=== PATIENT | female | born 1940 | race African-American/Black ===

== ENCOUNTER 2016-03-19 09:57 | Outpatient (CLI) | payer MEDICARE ==
[2016-03-19 11:12] LABS: Hemoglobin A1c 6.5 % (4.0-6.0)
[2016-03-19 11:23] LABS: Eosinophils 1 % (0-10); Lymphocytes 64 % (21-51); MDiff Complete? YES; Mean Corpuscular HGB CONC 33.4 g/dL (32.0-36.0); Mean Corpuscular Volume 92.7 fl (81.0-99.0); Mean Platelet Volume 8.5 fL (7.4-10.4); Monocytes 5 % (0-10); Neutrophil 29 % (42-75); Platelet Count 270 thou/uL (130-400); RBC Distribution Width 12.6 % (11.5-14.5); Reactive Lymphocytes 1 % (0-10); Red Blood Cell (RBC) Count 3.89 mill/uL (4.20-5.40)
[2016-03-19 11:54] LABS: ALT (SGPT) 12 U/L (0-55); AST (SGOT) 13 U/L (5-34); Albumin 4.2 g/dL (3.4-4.8); Alkaline Phosphatase 77 U/L (40-150); Anion Gap 13 mmol/L (10-20); BUN (Urea Nitrogen) 21 mg/dL (9.8-20.1); Bilirubin, Total 0.4 mg/dL (0.2-1.2); Calc. Creatinine Clearance 0 mL/min (70-130); Calcium 9.9 mg/dL (7.8-10.44); Carbon Dioxide 27 mmol/L (23-31); Chloride 104 mmol/L (98-107); Cholesterol 183 mg/dL (< 200 Desired); Estimated GFR-MDRD 71; Globulin 2.9 g/dL (2.4-3.5); Glucose 150 mg/dL (83-110); HDL Cholesterol 61 mg/dL (>60 Neg Risk); LDL Cholesterol, Calculated 93 mg/dL; Potassium 3.9 mmol/L (3.5-5.1); Protein, Total 7.1 g/dL (5.8-8.1); Sodium 140 mmol/L (136-145); Triglycerides 143 mg/dL (Less than 150)
[2016-03-19 17:27] LABS: Creatinine, Urine 65.91 mg/dL (47-110); Microalbumin Urine Less than 1.0 mg/dL (0.5-50.0); Microalbumin/Creat Ratio 15.2 mg/g (Less than 30)
== END 2016-03-19 09:58 | disposition home or self-care (01) ==
LOC: MADLABBHPM 09:57
PROVIDERS: ATTEND Family Medicine
DX: E11.65 Type 2 diabetes mellitus with hyperglycemia (principal)
CPT/HCPCS: 36415; 80053; 80061; 82043; 83036; 84443; 85025

== ENCOUNTER 2016-07-30 10:33 | Outpatient (CLI) | payer MEDICARE ==
[2016-07-30 11:12] LABS: #Basophils 0.1 thou/uL (0.0-0.2); #Eosinphils 0.1 thou/uL (0.0-0.7); #Lymphocytes 2.3 thou/uL (1.20-3.40); #Monocytes 0.4 thou/uL (0.11-0.59); #Neutrophils 2.8 thou/uL (1.40-6.50); %Basophils 1.5 % (0.0-1.0); %Eosinophils 1.6 % (0.0-10.0); %Lymphocytes 40.2 % (21.0-51.0); %Monocytes 7.7 % (0.0-10.0); %Neutrophils 48.9 % (42.0-75.0); Hemoglobin 10.6 g/dL (12.0-16.0); Mean Corpuscular HGB CONC 32.1 g/dL (32.0-36.0); Mean Corpuscular Hemoglobin 30.1 pg (27.0-31.0); Mean Corpuscular Volume 93.6 fl (81.0-99.0); Mean Platelet Volume 8.3 fL (7.4-10.4); Platelet Count 233 thou/uL (130-400); RBC Distribution Width 13.9 % (11.5-14.5); Red Blood Cell (RBC) Count 3.53 mill/uL (4.20-5.40); White Blood Cell (WBC) Count 5.7 thou/uL (4.8-10.8)
[2016-07-30 11:18] LABS: Hemoglobin A1c 5.9 % (4.0-6.0)
[2016-07-30 11:24] LABS: ALT (SGPT) 13 U/L (8-55); AST (SGOT) 16 U/L (5-34); Albumin 3.8 g/dL (3.4-4.8); Alkaline Phosphatase 58 U/L (40-150); Anion Gap 16 mmol/L (10-20); BUN (Urea Nitrogen) 42 mg/dL (9.8-20.1); Bilirubin, Total 0.3 mg/dL (0.2-1.2); Calc. Creatinine Clearance 0 mL/min (70-130); Calcium 9.3 mg/dL (7.8-10.44); Carbon Dioxide 23 mmol/L (23-31); Chloride 109 mmol/L (98-107); Estimated GFR-MDRD 44; Globulin 2.7 g/dL (2.4-3.5); Glucose 98 mg/dL (83-110); Potassium 4.3 mmol/L (3.5-5.1); Protein, Total 6.5 g/dL (6.0-8.3); Sodium 144 mmol/L (136-145)
[2016-07-30 17:57] LABS: Creatinine, Urine 37.63 mg/dL (47-110); Microalbumin Urine Less than 1.0 mg/dL (0.5-50.0); Microalbumin/Creat Ratio 26.6 mg/g (Less than 30)
== END 2016-07-30 10:34 | disposition home or self-care (01) ==
LOC: MADLABBHPM 10:33
PROVIDERS: ATTEND Family Medicine
DX: E11.65 Type 2 diabetes mellitus with hyperglycemia (principal); I10 Essential (primary) hypertension; D72.819 Decreased white blood cell count, unspecified
CPT/HCPCS: 36415; 80053; 82043; 83036; 85025

== ENCOUNTER 2016-09-17 07:55 | Outpatient (CLI) | payer MEDICARE ==
[2016-09-17 08:45] LABS: Hemoglobin A1c 6.4 % (4.0-6.0)
[2016-09-17 08:46] LABS: ALT (SGPT) 45 U/L (8-55); AST (SGOT) 42 U/L (5-34); Albumin 3.8 g/dL (3.4-4.8); Alkaline Phosphatase 122 U/L (40-150); Anion Gap 14 mmol/L (10-20); BUN (Urea Nitrogen) 26 mg/dL (9.8-20.1); Bilirubin, Total 0.5 mg/dL (0.2-1.2); Calc. Creatinine Clearance 0 mL/min (70-130); Calcium 9.3 mg/dL (7.8-10.44); Carbon Dioxide 25 mmol/L (23-31); Chloride 108 mmol/L (98-107); Estimated GFR-MDRD 55; Globulin 3.2 g/dL (2.4-3.5); Glucose 149 mg/dL (83-110); Potassium 3.8 mmol/L (3.5-5.1); Sodium 143 mmol/L (136-145)
== END 2016-09-17 07:56 | disposition home or self-care (01) ==
LOC: MADLABBHPM 07:55
PROVIDERS: ATTEND Family Medicine
DX: F32.9 Major depressive disorder, single episode, unspecified (principal); E11.65 Type 2 diabetes mellitus with hyperglycemia; N17.9 Acute kidney failure, unspecified
CPT/HCPCS: 36415; 80053; 83036

== ENCOUNTER 2016-11-04 08:51 | Outpatient (CLI) | payer MEDICARE ==
[2016-11-04 09:40] LABS: Hemoglobin A1c 6.2 % (4.0-6.0)
[2016-11-04 09:46] LABS: ALT (SGPT) 13 U/L (8-55); AST (SGOT) 15 U/L (5-34); Albumin 3.9 g/dL (3.4-4.8); Alkaline Phosphatase 115 U/L (40-150); Anion Gap 11 mmol/L (10-20); BUN (Urea Nitrogen) 46 mg/dL (9.8-20.1); Bilirubin, Total 0.4 mg/dL (0.2-1.2); Calc. Creatinine Clearance 0 mL/min (70-130); Calcium 9.4 mg/dL (7.8-10.44); Carbon Dioxide 24 mmol/L (23-31); Cardiac Risk 3.8 (Less than 4.5); Chloride 107 mmol/L (98-107); Cholesterol 184 mg/dl (< 200 Desired); Estimated GFR-MDRD 40; Globulin 3.1 g/dL (2.4-3.5); Glucose 148 mg/dL (83-110); HDL Cholesterol 49 mg/dL (>60 Neg Risk); LDL Cholesterol, Calculated 95 mg/dL; Potassium 4.1 mmol/L (3.5-5.1); Sodium 138 mmol/L (136-145); Triglycerides 200 mg/dL (Less than 150)
== END 2016-11-04 08:52 | disposition home or self-care (01) ==
LOC: MADLABBHPM 08:51
PROVIDERS: ATTEND Family Medicine
DX: E11.65 Type 2 diabetes mellitus with hyperglycemia (principal); I10 Essential (primary) hypertension
CPT/HCPCS: 36415; 80053; 80061; 83036

== ENCOUNTER 2017-05-21 15:29 | Outpatient (CLI) | payer MEDICARE ==
[2017-05-21 16:20] LABS: ALT (SGPT) 16 U/L (8-55); AST (SGOT) 18 U/L (5-34); Albumin 4.1 g/dL (3.4-4.8); Alkaline Phosphatase 89 U/L (40-150); Anion Gap 16 mmol/L (10-20); BUN (Urea Nitrogen) 22 mg/dL (9.8-20.1); Bilirubin, Total 0.5 mg/dL (0.2-1.2); Calc. Creatinine Clearance 0 mL/min (70-130); Calcium 9.8 mg/dL (7.8-10.44); Carbon Dioxide 26 mmol/L (23-31); Cardiac Risk 3.1 (Less than 4.5); Chloride 106 mmol/L (98-107); Cholesterol 161 mg/dl (< 200 Desired); Estimated GFR-MDRD 67; Glucose 99 mg/dL (83-110); HDL Cholesterol 52 mg/dL (>60 Neg Risk); LDL Cholesterol, Calculated 68 mg/dL; Potassium 4.1 mmol/L (3.5-5.1); Protein, Total 7.1 g/dL (6.0-8.3); Sodium 144 mmol/L (136-145); Triglycerides 207 mg/dL (Less than 150)
[2017-05-21 16:37] LABS: #Basophils 0.1 thou/uL (0.0-0.2); #Lymphocytes 2.6 thou/uL (1.20-3.40); #Monocytes 0.4 thou/uL (0.11-0.59); #Neutrophils 3.3 thou/uL (1.40-6.50); %Basophils 1.5 % (0.0-1.0); %Eosinophils 0.7 % (0.0-10.0); %Lymphocytes 39.8 % (21.0-51.0); %Monocytes 6.4 % (0.0-10.0); %Neutrophils 51.6 % (42.0-75.0); Hemoglobin 11.6 g/dL (12.0-16.0); Mean Corpuscular HGB CONC 33.1 g/dL (32.0-36.0); Mean Corpuscular Hemoglobin 29.9 pg (27.0-31.0); Mean Corpuscular Volume 90.4 fl (81.0-99.0); Mean Platelet Volume 7.3 fL (7.4-10.4); Platelet Count 250 thou/uL (130-400); RBC Distribution Width 13.9 % (11.5-14.5); Red Blood Cell (RBC) Count 3.87 mill/uL (4.20-5.40); White Blood Cell (WBC) Count 6.4 thou/uL (4.8-10.8)
[2017-05-21 21:46] LABS: Hemoglobin A1c 6.5 % (4.0-6.0)
[2017-05-21 21:49] LABS: Iron 41 ug/dL (50-170)
== END 2017-05-21 15:30 | disposition home or self-care (01) ==
LOC: MADLABBHPM 15:29
PROVIDERS: ATTEND Family Medicine
DX: E78.1 Pure hyperglyceridemia (principal); E11.65 Type 2 diabetes mellitus with hyperglycemia; D50.9 Iron deficiency anemia, unspecified
CPT/HCPCS: 36415; 80053; 80061; 83036; 83540; 85025

== ENCOUNTER → 2017-06-02 | Emergency (ER) | payer MEDICARE ==
[~2017-06-02] MED LIST: Iopamidol 370 76% 100 ML VIAL ONE; Morphine 10 MG/ML VIAL ONE; Nitroglycerin 2% Ointment 1 INCH/1 GM Packet ONE; Nitroglycerin 50 MG/250 ML BOT 0 ML ONE; Nitroglycerin 50 MG/250 ML BOT 250 ML ONE
[2017-06-02 15:00] LABS: #Basophils 0.1 thou/uL (0.0-0.2); #Monocytes 0.3 thou/uL (0.11-0.59); #Neutrophils 5.9 thou/uL (1.40-6.50); %Basophils 0.7 % (0.0-1.0); %Eosinophils 0.2 % (0.0-10.0); %Lymphocytes 24.2 % (21.0-51.0); %Monocytes 3.6 % (0.0-10.0); %Neutrophils 71.4 % (42.0-75.0); Hemoglobin 11.8 g/dL (12.0-16.0); Mean Corpuscular Hemoglobin 30.7 pg (27.0-31.0); Mean Corpuscular Volume 90.2 fl (81.0-99.0); Mean Platelet Volume 7.7 fL (7.4-10.4); Platelet Count 249 thou/uL (130-400); RBC Distribution Width 13.2 % (11.5-14.5); Red Blood Cell (RBC) Count 3.86 mill/uL (4.20-5.40); White Blood Cell (WBC) Count 8.3 thou/uL (4.8-10.8)
[2017-06-02 15:01] LABS: PTT 24.1 SEC (22.9-36.1)
[2017-06-02 15:08] LABS: D-Dimer Test 0.79 *mcg/mL (0.27-0.43)
--- NOTE | 2017-06-02 15:10 | RAD ---
CHEST 1 VIEW: Date: 06/02/17 HISTORY: Chest pain. COMPARISON: Chest radiograph from 2017. FINDINGS: Linear scarring left lung base. Remainder of lungs relatively clear. No pneumothorax. No effusion. No acute osseous abnormality. IMPRESSION: Chronic changes. No acute intrathoracic abnormality. POS: [facility]
[2017-06-02 15:14] LABS: CKMB 1.4 ng/mL (0-6.6); Troponin I Less than 0.010 ng/mL (< 0.028)
[2017-06-02 15:28] LABS: ALT (SGPT) 19 U/L (8-55); AST (SGOT) 19 U/L (5-34); Alkaline Phosphatase 88 U/L (40-150); Anion Gap 19 mmol/L (10-20); BUN (Urea Nitrogen) 24 mg/dL (9.8-20.1); Bilirubin, Total 1.1 mg/dL (0.2-1.2); Calc. Creatinine Clearance 0 mL/min (70-130); Calcium 9.4 mg/dL (7.8-10.44); Carbon Dioxide 21 mmol/L (23-31); Chloride 107 mmol/L (98-107); Estimated GFR-MDRD 54; Globulin 2.9 g/dL (2.4-3.5); Glucose 176 mg/dL (83-110); Magnesium 1.8 mg/dL (1.6-2.6); Potassium 4.2 mmol/L (3.5-5.1); Protein, Total 6.9 g/dL (6.0-8.3); Sodium 143 mmol/L (136-145)
--- NOTE | 2017-06-02 17:06 | CT ---
CT ARTERIOGRAM CHEST WITH IV CONTRAST AND 3D MIP IMAGING: HISTORY: Chest pain. Dyspnea. FINDINGS: There is good contrast opacification of the pulmonary arteries and thoracic aorta, with normal branch ing of the greater vessels from the aortic arch. No pneumothorax. Mild bibasilar atelectasis. No b ulky mediastinal adenopathy. Heterogeneity of the thyroid gland is again demonstrated, with the appe arance of a multinodular goiter. The right breast is absent. Myelolipoma involving the left adrenal gland, on the inferior-most images, is again demonstrated. Small hiatal hernia. IMPRESSION: 1. No CT evidence of pulmonary embolus. 2. Incidental type findings are as detailed above. POS: [facility]
== END ==
LOC: MADERS 14:09
DX: R07.9 Chest pain, unspecified (principal); M79.89 Other specified soft tissue disorders; K21.9 Gastro-esophageal reflux disease without esophagitis; I12.9 Hypertensive chronic kidney disease with stage 1 through stage 4 chronic kidney disease, or unspecified chronic kidney disease; N18.2 Chronic kidney disease, stage 2 (mild); E11.22 Type 2 diabetes mellitus with diabetic chronic kidney disease; F32.9 Major depressive disorder, single episode, unspecified; E78.5 Hyperlipidemia, unspecified
CPT/HCPCS: 71045; 71275; 80053; 82553; 83735; 83880; 84484; 85025; 85379; 85610; 85730; 93005; 96365; 96375; J2270

== ENCOUNTER 2017-08-05 13:24 | Outpatient (CLI) | payer MEDICARE | END 2017-08-05 13:25 | disposition home or self-care (01) | LOC: MADLABBHPM 13:24 | PROVIDERS: ATTEND Family Medicine | DX: N18.3 Chronic kidney disease, stage 3 (moderate) (principal) | CPT/HCPCS: 36415; 82565; 84520 ==

== ENCOUNTER 2017-08-12 21:37 | Emergency (ER) | payer MEDICARE ==
[2017-08-12] MEDS ORDERED: Ketorolac Tromethamine 30 MG/ML VIAL ONE (22:24)
[2017-08-12] MEDS ORDERED: diphenhydrAMINE 50 MG/ML VIAL ONE (22:24)
[2017-08-12] MEDS ORDERED: methylPREDNISolone Sod Succ/PF 125 MG/2 ML VIAL ONE (22:25)
[2017-08-12] MEDS ORDERED: Famotidine In NaCl 20 mg/50 ml Premix Bag ONE (22:25)
[2017-08-12] MEDS ORDERED: Sodium Chloride 0.9% 1,000 ML BAG ONE (22:38)
== END 2017-08-12 23:34 | disposition home or self-care (01) ==
LOC: MADERS 21:37
DX: T78.40XA Allergy, unspecified, initial encounter (principal); E11.22 Type 2 diabetes mellitus with diabetic chronic kidney disease; I12.9 Hypertensive chronic kidney disease with stage 1 through stage 4 chronic kidney disease, or unspecified chronic kidney disease; N18.2 Chronic kidney disease, stage 2 (mild); K21.9 Gastro-esophageal reflux disease without esophagitis; F32.9 Major depressive disorder, single episode, unspecified
CPT/HCPCS: 96365; 96375; J1200; J1885; J2930; J7050

== ENCOUNTER 2017-10-21 09:00 | Outpatient (CLI) | payer MEDICARE ==
[2017-10-22 12:43] LABS: Anion Gap 13 mmol/L (10-20); BUN (Urea Nitrogen) 31 mg/dL (9.8-20.1); Bilirubin, Total 0.5 mg/dL (0.2-1.2); Calc. Creatinine Clearance 0 mL/min (70-130); Calcium 9.9 mg/dL (7.8-10.44); Carbon Dioxide 27 mmol/L (23-31); Chloride 108 mmol/L (98-107); Estimated GFR-MDRD 52; Glucose 128 mg/dL (83-110); Potassium 3.6 mmol/L (3.5-5.1); Sodium 144 mmol/L (136-145)
[2017-10-22 12:44] LABS: ALT (SGPT) 15 U/L (8-55); AST (SGOT) 16 U/L (5-34); Alkaline Phosphatase 58 U/L (40-150); Cardiac Risk 2.5 (Less than 4.5); Cholesterol 125 mg/dL (< 200 Desired); Globulin 2.7 g/dL (2.4-3.5); HDL Cholesterol 51 mg/dL (>60 Neg Risk); LDL Cholesterol, Calculated 56 mg/dL; Protein, Total 6.7 g/dL (5.8-8.1); Triglycerides 86 mg/dL (Less than 150)
[2017-10-22 12:52] LABS: Hemoglobin 11.5 g/dL (12.0-16.0); Manual Diff?? NO; Mean Corpuscular HGB CONC 31.9 g/dL (32.0-36.0); Mean Corpuscular Hemoglobin 30.1 pg (27.0-31.0); Mean Corpuscular Volume 94.1 fL (78.0-98.0); Platelet Count 260 thou/uL (130-400); RBC Distribution Width 13.3 % (11.5-14.5); Red Blood Cell (RBC) Count 3.83 mill/uL (4.20-5.40); White Blood Cell (WBC) Count 5.2 thou/uL (4.8-10.8)
[2017-10-22 12:53] LABS: #Basophils 0.1 thou/uL (0.0-0.2); #Eosinphils 0.1 thou/uL (0.0-0.7); #Monocytes 0.4 thou/uL (0.11-0.59); #Neutrophils 2.6 thou/uL (1.40-6.50); %Basophils 1.5 % (0.0-1.0); %Eosinophils 1.1 % (0.0-10.0); %Lymphocytes 40.4 % (21.0-51.0); %Monocytes 6.9 % (0.0-10.0); %Neutrophils 50.2 % (42.0-75.0); MDiff Complete? YES
[2017-10-22 17:24] LABS: Iron 54 ug/dL (50-170)
[2017-10-22 17:28] LABS: Hemoglobin A1c 6.7 % (4.0-6.0)
== END 2017-10-21 09:01 | disposition home or self-care (01) ==
LOC: MADLAB 09:00
PROVIDERS: ATTEND Family Medicine
DX: E78.1 Pure hyperglyceridemia (principal)
CPT/HCPCS: 36415; 80053; 80061; 82728; 83036; 83540; 85025

== ENCOUNTER 2017-11-05 16:52 | Outpatient (CLI) | payer MEDICARE ==
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
== END 2017-11-05 16:53 | disposition home or self-care (01) ==
LOC: MADRAD 16:52
PROVIDERS: ATTEND Family Medicine
DX: S80.01XA Contusion of right knee, initial encounter (principal); M17.11 Unilateral primary osteoarthritis, right knee

== ENCOUNTER 2017-12-25 14:11 | Emergency (ER) | payer MEDICARE ==
[2017-12-25] MEDS ORDERED: Morphine 4 MG/ML VIAL ONE ×2 (14:57→16:27)
[2017-12-25] MEDS ORDERED: Ondansetron PF 4 MG/2 ML Vial ONE (14:57)
[2017-12-25] MEDS ORDERED: Aspirin 325 MG TAB ONE (14:57)
[2017-12-25 15:00] LABS: Band 3 % (5-11); Hemoglobin 11.4 g/dL (12.0-16.0); Lymphocytes 33 % (21-51); MDiff Complete? YES; Mean Corpuscular HGB CONC 32.6 g/dL (32.0-36.0); Mean Corpuscular Hemoglobin 29.8 pg (27.0-31.0); Mean Corpuscular Volume 91.2 fL (78.0-98.0); Mean Platelet Volume 7.7 fL (7.4-10.4); Monocytes 15 % (0-10); Neutrophil 49 % (42-75); PLT Morphology Comment Appears Adequate; Platelet Count 261 thou/uL (130-400); Red Blood Cell (RBC) Count 3.83 mill/uL (4.20-5.40); White Blood Cell (WBC) Count 5.2 thou/uL (4.8-10.8)
[2017-12-25 15:04] LABS: Anion Gap 16 mmol/L (10-20); BUN (Urea Nitrogen) 19 mg/dL (9.8-20.1); CK (CPK) 29 U/L (29-168); Calc. Creatinine Clearance 0 mL/min (70-130); Calcium 9.1 mg/dL (7.8-10.44); Carbon Dioxide 20 mmol/L (23-31); Chloride 109 mmol/L (98-107); Estimated GFR-MDRD 45; Glucose 100 mg/dL (83-110); Potassium 3.5 mmol/L (3.5-5.1); Sodium 141 mmol/L (136-145)
[2017-12-25 15:06] LABS: CKMB 1.7 ng/mL (0-6.6); Troponin I Less than 0.010 ng/mL (< 0.028)
== END 2017-12-25 16:53 | disposition left against medical advice (07) ==
LOC: MADERS 14:11
DX: R07.9 Chest pain, unspecified (principal); E78.5 Hyperlipidemia, unspecified; E11.9 Type 2 diabetes mellitus without complications; K21.9 Gastro-esophageal reflux disease without esophagitis; I12.9 Hypertensive chronic kidney disease with stage 1 through stage 4 chronic kidney disease, or unspecified chronic kidney disease; N18.2 Chronic kidney disease, stage 2 (mild); K56.609 Unspecified intestinal obstruction, unspecified as to partial versus complete obstruction; F32.9 Major depressive disorder, single episode, unspecified; Z79.899 Other long term (current) drug therapy; Z79.84 Long term (current) use of oral hypoglycemic drugs
CPT/HCPCS: 80048; 82550; 82553; 83880; 84484; 85025; 85379; 93005; 94760; 96374; 96375; 96376; J2270; J2405

== ENCOUNTER 2018-01-12 14:06 | Outpatient (CLI) | payer MEDICARE ==
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
== END 2018-01-12 14:07 | disposition home or self-care (01) ==
LOC: MADRAD 14:06
PROVIDERS: ATTEND Family Medicine
DX: M54.2 Cervicalgia (principal); M25.511 Pain in right shoulder; M25.512 Pain in left shoulder; M47.812 Spondylosis without myelopathy or radiculopathy, cervical region; M19.011 Primary osteoarthritis, right shoulder
CPT/HCPCS: 72050

== ENCOUNTER 2018-02-25 15:01 | Emergency (ER) | payer MEDICARE ==
[~2018-02-25 15:01] MED LIST changes: -Iopamidol 370 76% 100 ML VIAL ONE; +Iopamidol 370 76% 125 ML VIAL FS ONE; -Morphine 10 MG/ML VIAL ONE; -Nitroglycerin 2% Ointment 1 INCH/1 GM Packet ONE; -Nitroglycerin 50 MG/250 ML BOT 0 ML ONE; -Nitroglycerin 50 MG/250 ML BOT 250 ML ONE
[2018-02-25 15:37] LABS: #Basophils 0.1 thou/uL (0.0-0.2); #Lymphocytes 1.8 thou/uL (1.20-3.40); #Monocytes 0.3 thou/uL (0.11-0.59); #Neutrophils 4.1 thou/uL (1.40-6.50); %Basophils 1.3 % (0.0-1.0); %Eosinophils 0.1 % (0.0-10.0); %Lymphocytes 27.9 % (21.0-51.0); %Monocytes 4.8 % (0.0-10.0); %Neutrophils 65.9 % (42.0-75.0); Mean Corpuscular HGB CONC 32.3 g/dL (32.0-36.0); Mean Corpuscular Hemoglobin 30.4 pg (27.0-31.0); Mean Corpuscular Volume 94.2 fL (78.0-98.0); Mean Platelet Volume 8.2 fL (7.4-10.4); Platelet Count 254 thou/uL (130-400); RBC Distribution Width 13.6 % (11.5-14.5); Red Blood Cell (RBC) Count 3.94 mill/uL (4.20-5.40); White Blood Cell (WBC) Count 6.3 thou/uL (4.8-10.8)
[2018-02-25 15:38] LABS: PTT 23.8 SEC (22.9-36.1)
[2018-02-25 15:50] LABS: ALT (SGPT) 13 U/L (8-55); AST (SGOT) 14 U/L (5-34); Albumin 4.2 g/dL (3.4-4.8); Alkaline Phosphatase 69 U/L (40-150); Anion Gap 13 mmol/L (10-20); BUN (Urea Nitrogen) 27 mg/dL (9.8-20.1); Bilirubin, Total 0.4 mg/dL (0.2-1.2); Calc. Creatinine Clearance 0 mL/min (70-130); Calcium 9.9 mg/dL (7.8-10.44); Carbon Dioxide 26 mmol/L (23-31); Chloride 108 mmol/L (98-107); Estimated GFR-MDRD 51; Globulin 2.7 g/dL (2.4-3.5); Glucose 139 mg/dL (83-110); Potassium 4.1 mmol/L (3.5-5.1); Protein, Total 6.9 g/dL (6.0-8.3); Sodium 143 mmol/L (136-145)
[2018-02-25 16:13] LABS: Bilirubin Negative (Negative); Blood, Urine Negative (Negative); Clarity Clear (Clear); Glucose, Urine (Dipstick) 250 mg/dL (Negative); Leukocyte Trace (Negative); Nitrite Negative (Negative); Protein, Urine (Dipstick) Negative (Neg-Trace); Specific Gravity, Urine 1.015 (1.005-1.030)
[2018-02-25 16:14] LABS: Bacteria/HPF Rare-Few HPF (None Seen); RBC/HPF 0-3 HPF (0-3)
--- NOTE | 2018-02-26 07:22 | CT ---
HEAD CT WITHOUT CONTRAST CT ANGIOGRAM OF THE HEAD CT ANGIOGRAM OF THE NECK 02/25/18 HISTORY: Right sided weakness, less than 24 hours. COMPARISON: None. TECHNIQUE: Noncontrast head CT is performed in the axial plane. CT angiogram of the head and neck is performed in the axial plane. Three dimensional reformatted imag es are submitted for interpretation. FINDINGS: NONCONTRAST HEAD CT: No parenchymal hemorrhage. No extra-axial hematoma. No midline shift. Basilar cisterns are patent. Ag e appropriate atrophy. Cortical toscano-white matter differentiation is preserved. Ventricle and sulci a re patent and symmetric. Calvarium is intact. Adequate aeration of the sinuses and mastoid air cells. Cavernous carotid athero sclerosis is noted. The visualized lung apices are unremarkable. Upper mediastinum is unremarkable. Multiple hypodensities are noted in the thyroid gland. Nonemergent thyroid ultrasound can be performe d. There is prominence of the left and right submandibular duct without evidence of an associated sialol ith. There is no inflammatory change. Parotid glands are unremarkable. Bilateral ocular lenses are appropriately located. Both globes are intact. Retrobulbar fat is preserv ed. Symmetric attenuation of the optic nerves and ocular rectus muscles. No obvious masses in the ora l cavity. No evidence of lymphadenopathy or size criteria. On the postcontrast images, cortical toscano- white matter differentiation is preserved. CT ANGIOGRAM: The visualized aortic arch has appropriate enhancement and luminal diameter. RIGHT CAROTID: The origin of the right carotid artery has appropriate enhancement and luminal diameter. There is mil d tortuosity of the proximal right common carotid artery. The right common carotid artery, carotid bi furcation and internal carotid artery have appropriate enhancement and luminal diameter. LEFT CAROTID: The left carotid artery origin has appropriate enhancement and luminal diameter. The left common verduzco tid artery, carotid bifurcation, and internal carotid artery have appropriate enhancement and luminal diameter. Cervical vertebral arteries are patent throughout their course in the neck and are essenti ally codominant. Bilateral subclavian arteries are patent. CT ANGIOGRAM OF THE HEAD: The distal cervical and cranial internal carotid arteries have appropriate enhancement and luminal di ameter. There is atherosclerosis of bilateral cavernous carotid arteries. ANTERIOR CIRCULATION: There is appropriate enhancement and luminal diameter of the left and right A1 and M1 segments. Proxi mal A2 segments and proximal MCA branches are patent. POSTERIOR CIRCULATION: Right and left PICA artery origins are grossly unremarkable. Both vertebral arteries supply a normal appearing basilar artery. The left and right P1 segments have appropriate enhancement and luminal felix meter. IMPRESSION: 1. No evidence of vascular occlusion at the level of the [place]. 2. No evidence of significant stenosis based upon NASCET criteria in the cervical carotid arteri es. 3. Incidental findings involving the submandibular and thyroid gland is described above. Results of the study discussed with Dr. Street, 02/25/18 at 4:01 p.m. Code CR POS: [facility]
== END 2018-02-25 18:50 | disposition short-term general hospital (02) ==
LOC: EDBD 15:01 → MADERS 15:01
DX: R53.1 Weakness (principal); E78.5 Hyperlipidemia, unspecified; E11.9 Type 2 diabetes mellitus without complications; K21.9 Gastro-esophageal reflux disease without esophagitis; I12.9 Hypertensive chronic kidney disease with stage 1 through stage 4 chronic kidney disease, or unspecified chronic kidney disease; N18.2 Chronic kidney disease, stage 2 (mild); F32.9 Major depressive disorder, single episode, unspecified; Z79.899 Other long term (current) drug therapy; Z79.84 Long term (current) use of oral hypoglycemic drugs
CPT/HCPCS: 36415; 36416; 70450; 70496; 80053; 81003; 81015; 84484; 85025; 85610; 85730; 93005

== ENCOUNTER 2018-06-28 18:46 | Emergency (ER) | payer MEDICARE ==
[2018-06-28] MEDS ORDERED: diphenhydrAMINE 25 MG CAP ONE (19:13)
== END 2018-06-28 19:42 | disposition home or self-care (01) ==
LOC: MADERS 18:46
DX: S40.262A Insect bite (nonvenomous) of left shoulder, initial encounter (principal); S10.96XA Insect bite of unspecified part of neck, initial encounter; E78.5 Hyperlipidemia, unspecified; E11.9 Type 2 diabetes mellitus without complications; K21.9 Gastro-esophageal reflux disease without esophagitis; F32.9 Major depressive disorder, single episode, unspecified; I12.9 Hypertensive chronic kidney disease with stage 1 through stage 4 chronic kidney disease, or unspecified chronic kidney disease; N18.2 Chronic kidney disease, stage 2 (mild); Z79.899 Other long term (current) drug therapy; Z79.84 Long term (current) use of oral hypoglycemic drugs; W57.XXXA Bitten or stung by nonvenomous insect and other nonvenomous arthropods, initial encounter
CPT/HCPCS: 96372; J1040; Q0163

== ENCOUNTER 2018-08-20 14:13 | Outpatient (CLI) | payer MEDICARE ==
--- NOTE | 2018-08-20 16:29 | RAD ---
THREE VIEWS CERVICAL SPINE: COMPARISON: None. HISTORY: Radicular neck pain extending into the right upper extremity. FINDINGS: Three views of the cervical spine show normal height and alignment of the vertebral bodies without fr acture or subluxation. There is mild intervertebral disk space narrowing at C3-4. No prevertebral s oft tissue swelling is seen. IMPRESSION: Mild degenerative changes of the upper cervical spine without acute osseous abnormality. POS: [facility]
== END 2018-08-20 14:14 | disposition home or self-care (01) ==
LOC: MADRAD 14:13
PROVIDERS: ATTEND Orthopaedic Surgery
DX: M47.22 Other spondylosis with radiculopathy, cervical region (principal)
CPT/HCPCS: 72040

== ENCOUNTER 2019-03-18 13:20 | Outpatient (CLI) | payer MEDICARE ==
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
== END 2019-03-18 13:21 | disposition home or self-care (01) ==
LOC: MADRAD 13:20
PROVIDERS: ATTEND Orthopaedic Surgery
DX: M17.12 Unilateral primary osteoarthritis, left knee (principal)

== ENCOUNTER 2019-04-22 09:37 | Emergency (ER) | payer MEDICARE ==
[2019-04-22] MEDS ORDERED: HYDROcodone/Acetaminophen 5/325 mg Tablet ONE (10:19)
[2019-04-22] MEDS ORDERED: diphenhydrAMINE 25 MG CAP ONE (10:19)
[2019-04-22] MEDS ORDERED: predniSONE 20 MG TAB ONE (10:19)
== END 2019-04-22 10:24 | disposition home or self-care (01) ==
LOC: MADERS 09:37
DX: T63.441A Toxic effect of venom of bees, accidental (unintentional), initial encounter (principal); L53.0 Toxic erythema; M79.89 Other specified soft tissue disorders; E78.5 Hyperlipidemia, unspecified; K21.9 Gastro-esophageal reflux disease without esophagitis; I12.9 Hypertensive chronic kidney disease with stage 1 through stage 4 chronic kidney disease, or unspecified chronic kidney disease; E11.22 Type 2 diabetes mellitus with diabetic chronic kidney disease; N18.2 Chronic kidney disease, stage 2 (mild); F32.9 Major depressive disorder, single episode, unspecified
CPT/HCPCS: 99282; J7512; Q0163

== ENCOUNTER 2020-04-20 09:54 | Outpatient (CLI) | payer MEDICARE | END 2020-04-20 09:55 | disposition home or self-care (01) | LOC: MADRAD 09:54 | PROVIDERS: ATTEND Family Medicine | DX: M54.2 Cervicalgia (principal); M47.812 Spondylosis without myelopathy or radiculopathy, cervical region; V89.2XXA Person injured in unspecified motor-vehicle accident, traffic, initial encounter | CPT/HCPCS: 72050 ==

== ENCOUNTER 2020-06-20 11:32 | Emergency (ER) | payer MEDICARE ==
[2020-06-20] MEDS ORDERED: Nitroglycerin 0.4 MG TAB 1 EACH ONE ×2 (11:52→12:53)
[2020-06-20] MEDS ORDERED: Aspirin Chewable 81 MG TAB ONE (11:52)
[2020-06-20] MEDS ORDERED: Morphine 4 MG/ML VIAL ONE ×2 (13:20→15:08)
[2020-06-20 16:29] LABS: Red Blood Cell (RBC) Count 3.82 mill/uL (4.20-5.40); White Blood Cell (WBC) Count 5.3 thou/uL (4.8-10.8)
[2020-06-20 16:30] LABS: #Lymphocytes 2.5 thou/uL (1.20-3.40); #Neutrophils 2.3 thou/uL (1.40-6.50); %Basophils 1.4 % (0.0-1.0); %Eosinophils 0.9 % (0.0-10.0); %Lymphocytes 46.5 % (21.0-51.0); %Monocytes 7.1 % (0.0-10.0); %Neutrophils 44.1 % (42.0-75.0); Hemoglobin 11.4 g/dL (12.0-16.0); Mean Corpuscular HGB CONC 30.4 g/dL (32.0-36.0); Mean Corpuscular Hemoglobin 29.9 pg (27.0-31.0); Mean Corpuscular Volume 98.2 fL (78.0-98.0); Mean Platelet Volume 8.8 fL (7.4-10.4); Platelet Count 261 thou/uL (130-400); RBC Distribution Width 13.1 % (11.5-14.5)
[2020-06-20 16:31] LABS: #Basophils 0.1 thou/uL (0.0-0.2); #Monocytes 0.4 thou/uL (0.11-0.59)
[2020-06-20 16:39] LABS: ALT (SGPT) 21 U/L (8-55); AST (SGOT) 18 U/L (5-34); Albumin 3.5 g/dL (3.4-4.8); Alkaline Phosphatase 122 U/L (40-110); Anion Gap 16 mmol/L (10-20); BUN (Urea Nitrogen) 23 mg/dL (9.8-20.1); Bilirubin, Total 0.6 mg/dL (0.2-1.2); Calc. Creatinine Clearance 0 mL/min (70-130); Calcium 8.6 mg/dL (7.8-10.44); Carbon Dioxide 22 mmol/L (23-31); Chloride 110 mmol/L (98-107); Globulin 2.4 g/dL (2.4-3.5); Glucose 129 mg/dL (83-110); Potassium 3.9 mmol/L (3.5-5.1); Protein, Total 5.9 g/dL (5.8-8.1); Sodium 144 mmol/L (136-145)
[2020-06-20 16:42] LABS: PTT 28.9 sec (22.9-36.1); Prothrombin Time 13.2 sec (12.0-14.7)
== END 2020-06-20 16:55 | disposition short-term general hospital (02) ==
LOC: MADERS 11:32
DX: R07.9 Chest pain, unspecified (principal); R60.0 Localized edema; R06.02 Shortness of breath; R11.0 Nausea; K21.9 Gastro-esophageal reflux disease without esophagitis; I12.9 Hypertensive chronic kidney disease with stage 1 through stage 4 chronic kidney disease, or unspecified chronic kidney disease; N18.2 Chronic kidney disease, stage 2 (mild); E11.22 Type 2 diabetes mellitus with diabetic chronic kidney disease; Z79.84 Long term (current) use of oral hypoglycemic drugs; Z79.899 Other long term (current) drug therapy; Z85.3 Personal history of malignant neoplasm of breast
CPT/HCPCS: 71045; 80053; 83880; 84484; 85025; 85610; 85730; 93005; 94760; J2270

== ENCOUNTER 2020-07-05 13:24 | Emergency (ER) | payer MEDICARE | END 2020-07-05 14:25 | disposition home or self-care (01) | LOC: MADERS 13:24 | DX: S83.92XA Sprain of unspecified site of left knee, initial encounter (principal); S86.912A Strain of unspecified muscle(s) and tendon(s) at lower leg level, left leg, initial encounter; E11.9 Type 2 diabetes mellitus without complications; K21.9 Gastro-esophageal reflux disease without esophagitis; E78.5 Hyperlipidemia, unspecified; I12.9 Hypertensive chronic kidney disease with stage 1 through stage 4 chronic kidney disease, or unspecified chronic kidney disease; N18.2 Chronic kidney disease, stage 2 (mild); E11.22 Type 2 diabetes mellitus with diabetic chronic kidney disease; K56.609 Unspecified intestinal obstruction, unspecified as to partial versus complete obstruction; Z79.899 Other long term (current) drug therapy; Z79.84 Long term (current) use of oral hypoglycemic drugs; W18.30XA Fall on same level, unspecified, initial encounter ==

== ENCOUNTER 2021-04-04 11:36 | Emergency (ER) | payer MEDICARE | END 2021-04-04 12:43 | disposition home or self-care (01) | LOC: MADERS 11:36 | DX: R51.9 Headache, unspecified (principal); R42 Dizziness and giddiness; I13.10 Hypertensive heart and chronic kidney disease without heart failure, with stage 1 through stage 4 chronic kidney disease, or unspecified chronic kidney disease; E11.22 Type 2 diabetes mellitus with diabetic chronic kidney disease; N18.2 Chronic kidney disease, stage 2 (mild); E78.5 Hyperlipidemia, unspecified; K21.9 Gastro-esophageal reflux disease without esophagitis; Z85.3 Personal history of malignant neoplasm of breast | CPT/HCPCS: 99283 ==

== ENCOUNTER 2021-04-26 14:04 | Outpatient (CLI) | payer MEDICARE | END 2021-04-26 14:05 | disposition home or self-care (01) | LOC: MADRAD 14:04 | PROVIDERS: ATTEND Family Medicine | DX: S22.41XS Multiple fractures of ribs, right side, sequela (principal) ==

== ENCOUNTER 2021-07-20 21:49 | Emergency (ER) | payer MEDICARE ==
[2021-07-20] MEDS ORDERED: predniSONE 10 MG TAB ONE (22:14)
[2021-07-20] MEDS ORDERED: predniSONE 20 MG TAB ONE ×2 (22:14→22:15)
[2021-07-20] MEDS ORDERED: Famotidine 20 MG TAB ONE (22:15)
[2021-07-20] MEDS ORDERED: diphenhydrAMINE 25 MG CAP ONE (22:16)
== END 2021-07-20 23:03 | disposition home or self-care (01) ==
LOC: MADERS 21:49
DX: T63.461A Toxic effect of venom of wasps, accidental (unintentional), initial encounter (principal); E11.9 Type 2 diabetes mellitus without complications; I10 Essential (primary) hypertension; E78.5 Hyperlipidemia, unspecified; K21.9 Gastro-esophageal reflux disease without esophagitis
CPT/HCPCS: 99282; J7512

== ENCOUNTER 2021-09-06 14:24 | Emergency (ER) | payer MEDICARE ==
[2021-09-06 16:08] LABS: #Basophils 0.1 thou/uL (0.0-0.2); #Eosinphils 0.1 thou/uL (0.0-0.7); #Lymphocytes 2.1 thou/uL (1.20-3.40); #Monocytes 0.4 thou/uL (0.11-0.59); #Neutrophils 2.8 thou/uL (1.40-6.50); %Eosinophils 0.9 % (0.0-10.0); %Lymphocytes 38.3 % (21.0-51.0); %Monocytes 7.7 % (0.0-10.0); %Neutrophils 52.1 % (42.0-75.0); Hemoglobin 11.4 g/dL (12.0-16.0); Mean Corpuscular HGB CONC 30.9 g/dL (32.0-36.0); Mean Corpuscular Hemoglobin 29.7 pg (27.0-31.0); Mean Corpuscular Volume 96.1 fL (78.0-98.0); Mean Platelet Volume 10.2 fL (7.4-10.4); Platelet Count 198 thou/uL (130-400); RBC Distribution Width 13.4 % (11.5-14.5); Red Blood Cell (RBC) Count 3.85 mill/uL (4.20-5.40); White Blood Cell (WBC) Count 5.4 thou/uL (4.8-10.8)
[2021-09-06 16:23] LABS: ALT (SGPT) 20 U/L (8-55); AST (SGOT) 20 U/L (5-34); Albumin 4.1 g/dL (3.4-4.8); Alkaline Phosphatase 118 U/L (40-110); Anion Gap 15 mmol/L (10-20); BUN (Urea Nitrogen) 20 mg/dL (9.8-20.1); Bilirubin, Total 0.4 mg/dL (0.2-1.2); Calc. Creatinine Clearance 0 mL/min (70-130); Calcium 9.5 mg/dL (7.8-10.44); Carbon Dioxide 24 mmol/L (23-31); Chloride 109 mmol/L (98-107); Estimated GFR 65; Globulin 3.1 g/dL (2.4-3.5); Glucose 124 mg/dL (83-110); Potassium 3.7 mmol/L (3.5-5.1); Protein, Total 7.2 g/dL (5.8-8.1); Sodium 144 mmol/L (136-145)
[2021-09-06] MEDS ORDERED: predniSONE 20 MG TAB ONE (17:31)
== END 2021-09-06 17:45 | disposition home or self-care (01) ==
LOC: MADERS 14:24
DX: M17.11 Unilateral primary osteoarthritis, right knee (principal); E11.22 Type 2 diabetes mellitus with diabetic chronic kidney disease; N18.2 Chronic kidney disease, stage 2 (mild); I12.9 Hypertensive chronic kidney disease with stage 1 through stage 4 chronic kidney disease, or unspecified chronic kidney disease; E78.5 Hyperlipidemia, unspecified; K21.9 Gastro-esophageal reflux disease without esophagitis
CPT/HCPCS: 36415; 80053; 85025; J7512

== ENCOUNTER 2023-07-20 17:40 | Emergency (ER) | payer MEDICARE, SELFPAY ==
[~2023-07-20 17:40] MED LIST changes: +Iopamidol 370 76% 100 ML VIAL ONE; -Iopamidol 370 76% 125 ML VIAL FS ONE
[2023-07-20] MEDS ORDERED: Aspirin Chewable 81 MG TAB ONE (18:57)
[2023-07-20] MEDS ORDERED: Lidocaine 4% Patch ONE (18:57)
[2023-07-20 19:16] LABS: #Basophils 0.1 thou/uL (0.0-0.2); #Eosinphils 0.1 thou/uL (0.0-0.7); #Lymphocytes 2.5 thou/uL (1.20-3.40); #Monocytes 0.4 thou/uL (0.11-0.59); #Neutrophils 2.7 thou/uL (1.40-6.50); %Basophils 1.6 % (0.0-1.0); %Eosinophils 1.2 % (0.0-10.0); %Lymphocytes 42.7 % (21.0-51.0); %Monocytes 7.7 % (0.0-10.0); %Neutrophils 46.8 % (42.0-75.0); Hematocrit 36.4 % (36.0-47.0); Hemoglobin 11.1 g/dL (12.0-16.0); Mean Corpuscular HGB CONC 30.6 g/dL (32.0-36.0); Mean Corpuscular Hemoglobin 29.7 pg (27.0-31.0); Mean Corpuscular Volume 97.1 fl (78.0-98.0); Mean Platelet Volume 7.1 fL (7.4-10.4); Platelet Count 235 10x3/uL (130-400); RBC Distribution Width 13.7 % (11.5-14.5); Red Blood Cell (RBC) Count 3.75 mill/uL (4.20-5.40); White Blood Cell (WBC) Count 5.8 10x3/uL (4.8-10.8)
[2023-07-20 19:30] LABS: ALT (SGPT) 17 U/L (8-55); AST (SGOT) 18 U/L (5-34); Albumin 3.9 g/dL (3.4-4.8); Alkaline Phosphatase 113 U/L (40-110); Anion Gap 15 mmol/L (10-20); BUN (Urea Nitrogen) 25 mg/dL (9.8-20.1); Bilirubin, Total 0.4 mg/dL (0.2-1.2); Calc. Creatinine Clearance 0 mL/min (70-130); Calcium 8.9 mg/dL (7.8-10.44); Carbon Dioxide 20 mmol/L (23-31); Chloride 111 mmol/L (98-107); Estimated GFR 54; Globulin 2.7 g/dL (2.4-3.5); Glucose 107 mg/dL (83-110); Lipase 18 U/L (8-78); Potassium 3.9 mmol/L (3.5-5.1); Protein, Total 6.6 g/dL (5.8-8.1); Sodium 142 mmol/L (136-145)
[2023-07-20 19:31] LABS: Troponin I Less than 0.010 ng/mL (< 0.028)
[2023-07-20] MEDS ORDERED: Azithromycin 250 MG TAB ONE (21:47)
== END 2023-07-20 21:58 | disposition home or self-care (01) ==
LOC: MADERS 17:40
DX: R07.9 Chest pain, unspecified (principal); J18.1 Lobar pneumonia, unspecified organism; M25.561 Pain in right knee; R79.1 Abnormal coagulation profile; E11.9 Type 2 diabetes mellitus without complications; I10 Essential (primary) hypertension; E78.5 Hyperlipidemia, unspecified; Z79.899 Other long term (current) drug therapy
CPT/HCPCS: 71045; 71275; 80053; 83690; 84484; 85025; 85379; 93005; 94760; Q9967

== ENCOUNTER 2023-08-12 10:35 | Outpatient (CLI) | payer MEDICARE | END 2023-08-12 10:36 | disposition home or self-care (01) | LOC: MADRAD 10:35 | PROVIDERS: ATTEND Family Medicine | DX: J18.9 Pneumonia, unspecified organism (principal) | CPT/HCPCS: 71046 ==

== ENCOUNTER 2023-10-18 20:12 | Emergency (ER) | payer MEDICARE, OTHER ==
[2023-10-18] MEDS ORDERED: Morphine 4 MG/ML VIAL ONE (20:35)
[2023-10-18 22:45] LABS: Band 1 % (5-11); Hematocrit 33.9 % (36.0-47.0); Hemoglobin 10.8 g/dL (12.0-16.0); Lymphocytes 10 % (21-51); MDiff Complete? YES; Mean Corpuscular HGB CONC 31.9 g/dL (32.0-36.0); Mean Corpuscular Hemoglobin 30.2 pg (27.0-31.0); Mean Corpuscular Volume 94.9 fl (78.0-98.0); Mean Platelet Volume 7.7 fL (7.4-10.4); Monocytes 9 % (0-10); Neutrophil 80 % (42-75); Platelet Count 145 10x3/uL (130-400); RBC Distribution Width 12.9 % (11.5-14.5); Red Blood Cell (RBC) Count 3.58 mill/uL (4.20-5.40); White Blood Cell (WBC) Count 9.3 10x3/uL (4.8-10.8)
[2023-10-18 22:47] LABS: ALT (SGPT) 14 U/L (8-55); AST (SGOT) 16 U/L (5-34); Albumin 3.4 g/dL (3.4-4.8); Alkaline Phosphatase 80 U/L (40-110); Anion Gap 16 mmol/L (10-20); BUN (Urea Nitrogen) 29 mg/dL (9.8-20.1); Bilirubin, Total 0.4 mg/dL (0.2-1.2); Calc. Creatinine Clearance 0 mL/min (70-130); Calcium 8.4 mg/dL (7.8-10.44); Carbon Dioxide 18 mmol/L (23-31); Chloride 109 mmol/L (98-107); Estimated GFR 45; Globulin 2.6 g/dL (2.4-3.5); Glucose 160 mg/dL (83-110); Magnesium 1.7 mg/dL (1.6-2.6); Potassium 3.7 mmol/L (3.5-5.1); Sodium 139 mmol/L (136-145)
[2023-10-18] MEDS ORDERED: Sodium Chloride 0.9% 1,000 ML ONE (22:50)
[2023-10-18] MEDS ORDERED: Ketorolac Tromethamine 30 MG (1 mL) VIAL ONE (23:39)
== END 2023-10-19 02:20 | disposition short-term general hospital (02) ==
LOC: MADERS 20:12
DX: S52.022A Displaced fracture of olecranon process without intraarticular extension of left ulna, initial encounter for closed fracture (principal); R53.1 Weakness; E11.22 Type 2 diabetes mellitus with diabetic chronic kidney disease; N18.2 Chronic kidney disease, stage 2 (mild); I12.9 Hypertensive chronic kidney disease with stage 1 through stage 4 chronic kidney disease, or unspecified chronic kidney disease; E78.5 Hyperlipidemia, unspecified; Z79.899 Other long term (current) drug therapy; W10.8XXA Fall (on) (from) other stairs and steps, initial encounter
CPT/HCPCS: 29105; 36415; 70450; 72125; 80053; 83735; 85025; 96374; 96375; J1885; J2272; J7030